=== PATIENT | female | born 1945 | race Caucasian/White ===

== ENCOUNTER 2018-08-26 12:00 | Day surgery (SDC) | payer OTHER ==
--- OUTSIDE RECORDS SUMMARY | 2018-08-26 12:04 | XMS REPORT ---
:1945 [facility] Organization [facility] Address [address] [place] [address] [address]. [address] [place] [address] Care Team Providers Name Role Phone Unavailable Unavailable Unavailable Problems This patient has no known problems. Allergies, Adverse Reactions, Alerts This patient has no known allergies or adverse reactions. Medications This patient has no known medications.
[2018-08-26] MEDS: CYCLOPENTOLATE 1% OPTH 2 ML ONE ×3 (12:25→12:45)
[2018-08-26] MEDS ORDERED: DUOVISC 1 KIT OPTH ONE (12:25)
[2018-08-26] MEDS: PHENYLEPHRINE 10% OPTH 5ML ONE ×3 (12:25→12:45)
[2018-08-26] MEDS ORDERED: NS 0.9% VIAL 10 ML ONE (12:25)
[2018-08-26] MEDS ORDERED: LIDOCAINE 2% MPF 5 ML VIAL ONE ×2 (12:26→13:32)
[2018-08-26] MEDS ORDERED: MOXIFLOXACIN HCL 10 DROPS/ML **OR USE OPTH ONE (12:26)
[2018-08-26] MEDS ORDERED: LIDOCAINE 1% MPF 2 ML AMPULE ONE (12:26)
[2018-08-26] MEDS ORDERED: TETRACAINE HCL 0.5% 2ML OPTH ONE (12:27)
[2018-08-26] MEDS ORDERED: LIDOCAINE HCL/PF 3.5% OPTH GEL ONE (12:27)
[2018-08-26] MEDS ORDERED: NA CHLORIDE 0.9% 500 ML ONE (12:27)
[2018-08-26] MEDS ORDERED: BUPIVACAINE 0.25% PF 10 ML VIAL ONE (12:27)
[2018-08-26] MEDS: BALANCED SALT IRRIG PLAIN 500 ML BTL IRR ONE ×2 (12:38→13:24)
[2018-08-26] MEDS: EPINEPHRINE/PF 1 MG/ML AMP ONE ×2 (12:38→13:24)
[2018-08-26] MEDS ORDERED: MIDAZOLAM HCL 2 MG/2 ML INJ ONE (13:07)
[2018-08-26] MEDS ORDERED: FENTANYL CITR 100 MCG/2 ML ONE (13:07)
[2018-08-26] MEDS ORDERED: DIPHENHYDRAMINE 50 MG/ML VIAL ONE (13:32)
[2018-08-26] MEDS ORDERED: LABETALOL 20 MG/4ML SYRINGE IV ONE (13:39)
--- NOTE | 2018-08-26 13:51 | P.BOP ---
Preoperative diagnosis: Nuclear sclerotic cataract OS Postoperative diagnosis: Same Primary procedure: Phacoemulsification with IOL OS Estimated blood loss: None Anesthesia: Local (Topical with anesthesia for cataract surgery) Complications: None Implants: SA60WF +25.5 Transferred to: Other (Day surgery) Condition: Good
--- NOTE | 2018-08-26 21:27 | OP ---
Date of Procedure: 08/26/2018 Surgeon: Michaela Thomas MD Anesthesiologist: Brandon Burris CRNA, and German Srivastava M.D. Preoperative Diagnosis: Nuclear sclerotic cataract, OS (left eye). Operation Performed: Phacoemulsification with intraocular lens implant, left eye. Anesthesia: Per cataract surgery. Complications: None. Description Of Procedure: In the operating room the patient was prepped and draped in the usual ster ile fashion for ophthalmic surgery. A lid speculum was placed in the left eye. Two paracentesis sit es were made superiorly and inferiorly in the limbal cornea. Viscoat was placed in the anterior cale wagner and a crescent blade was used to make a corneal groove and tunnel, and a keratome was used to ent er the anterior chamber. Provisc was placed in the anterior chamber and a 360 degree capsulotomy was performed with a cystitome. The lens was hydrodissected with BSS and rotated freely. The lens was removed with a stop and chop technique. A 4.67 phaco CDE was used to remove the lens. Residual vamsi ex was removed with the irrigation and aspiration. Provisc was placed in the capsular bag. A SA60WF +25.5 lens was placed in the capsular bag without complications. Irrigation and aspiration was used to remove residual viscoelastic. The paracentesis sites were hydrated with BSS. The wound and para centesis sites were inspected and found to be watertight. Vigamox 0.07 cc was placed intracamerally at the end of the procedure. The eye was irrigated with balanced salt solution. The eye was patched with a soft cotton patch and Alberto metal shield. The patient was returned to day surgery in good condition. Comments: Akten was placed in the eye in Day Surgery and irrigated out of the eye with BSS in the OR . Preservative-free 1% lidocaine was placed in the anterior chamber prior to Viscoat. Discharge Instructions: Ms. Esqueda is discharged to home in good condition and is to follow up with Dr. Thomas in the morning. JOSE/LINO Voice ID: [id number] Report ID: [id number]
== END 2018-08-26 14:15 | disposition home or self-care (01) ==
LOC: OR 12:00
PROVIDERS: ATTEND Ophthalmology Retina Specialist
PROC: 08RK3JZ Replacement of Left Lens with Synthetic Substitute, Percutaneous Approach (ICD-10-PCS; principal; 2018-08-26 11:30)
DX: H25.12 Age-related nuclear cataract, left eye (principal); E07.9 Disorder of thyroid, unspecified; Z79.899 Other long term (current) drug therapy
CPT/HCPCS: 66984; J0171; J2001; J2250; J3010; V2630

== ENCOUNTER 2020-12-16 19:35 | Emergency (ER) | payer OTHER ==
--- OUTSIDE RECORDS SUMMARY | 2020-12-16 19:38 | XMS REPORT | Continuity of Care Document ---
:1945 Author Organization [facility] t Address [address] [place] [address] Care Team Providers Name Role Phone Naseem RODRIGEZ, Hafsa Primary Care Physician Carlos A RODRIGEZ ARatna Attending Clinician Radha CORTEZ Attending Clinician Unavailable Anderson Fischer MD Attending Clinician Erich Alicea Attending Clinician Ben Neri Attending Clinician MD CARLOS A A. Attending Clinician Unavailable Omar FIGUEROA Attending Clinician Unavailable Davie Attending Clinician Unavailable Kelsie Carrera MD Attending Clinician Oz Mijares MD Attending Clinician Kayli Oglesby Attending Clinician Kalyna FIGUEROA Attending Clinician Unavailable Darnell CERVANTES Attending Clinician MD Kelsie CARRERA Attending Clinician Unavailable Luís Attending Clinician Unavailable Seun Gregorio MA Attending Clinician Unavailable Judy Partida MD Attending Clinician CARLOS A Admitting Clinician Unavailable MD Lenny STRAUSS. Admitting Clinician Unavailable FLACO Admitting Clinician Unavailable MD Kelsie CARRERA Admitting Clinician Unavailable Payers Payer Name Policy Type Policy Effective Date Expiration Date Sour ce Number MEDICAREMEDICARE PART [id number] 2011 Gavin Galvez AND 00:00:00 Religion [id number] 2011[place] [id number] 2013 [place] [id number] 00:00:00 Met diana /07/2012-Jeanette cial Problems Condition Condition Condition Status Onset Resolution Last Treating Co mments Source Name Details Category Date Date Treatment Clinician Date Primary Primary Disease Active Overview: [place] osteoarthr osteoarthr 1-06 Formattin Methodi itis of itis of 00:00: g of this st right hip right hip 00 note might be different from the original. Added automatic ally from request for surgery [id number] Osteoarthr Osteoarthr Disease Active [place] itis, knee itis, knee 9-16 Me thodi 00:00: st 00 Primary Primary Disease Active Overview: [place] osteoarthr osteoarthr 8-12 Formattin Methodi itis of itis of 00:00: g of this st left knee left knee 00 note might be different from the original. Added automatic ally from request for surgery [id number] Acute Acute Disease Active Overview: [place] n medial medial 2-03 Formattin Methodi meniscus meniscus 00:00: g of this st tear of tear of 00 note left knee left knee might be different from the original. Added automatic ally from request for surgery [id number] Loose body Loose body Disease Active Overview : [place] of left of left 2-03 Formattin Metho di knee knee 00:00: g of this st 00 note might be different from the original. Added automatic ally from request for surgery [id number] Allergies, Adverse Reactions, Alerts Allergy Allergy Status Severity Reaction(s) Onset Inactive Treating Comm ents Source Name Type Date Date Clinician Nsaids Propensi Active Other (See FLUID [place] (Non-Mert ty to Comments) 12 RETENTION Me thodi roidal adverse 00:00: & RAISED st Anti-Inf reaction 00 BLOOD lammator s to PRESSURE y Drug) drug Codeine Propensi Active Rash [place] ty to 09-18 Methodi adverse 00:00: st reaction 00 s to drug Meperidi Propensi Active Swelling [place] ne Hcl ty to 09-18 Methodi adverse 00:00: st reaction 00 s to drug Family History Family Member Diagnosis Comments Start Date Stop Date Source [facility] [place] Religion Natural father Heart disease Bro Espitiaist Natural mother Cancer [facility] thodist Social History Social Habit Start Date Stop Date Quantity Comments Source History of tobacco Current smoker Gavin nieves Religion use Cigarettes smoked 2020-09-09 2020-09-09 Bro Religion current (pack per 00:00:00 00:00:00 day) - Reported Cigarette 2020-09-09 2020-09-09 Bro Espitia ist pack-years 00:00:00 00:00:00 Tobacco use and 2020-09-09 2020-09-09 Never used Bro Barron ethodist exposure 00:00:00 00:00:00 Alcohol intake 2020-09-09 2020-09-09 Lifetime Bro Pablo thodist 00:00:00 00:00:00 non-drinker (finding) Tobacco Comment 2019-08-20 2019-08-20 smoked as a Bro Espitiaist 00:00:00 00:00:00 teenager Sex [birth year] Bro baldwinodist 00:00:00 00:00:00 Smoking Status Start Date Stop Date Source Former smoker 2020-09-09 00:00:00 2020-09-09 00:00:00 Bro Cisneros Medications Ordered Filled Start Stop Current Ordering Indication Dosage Frequency Signature Comments Components Source Medication Medication Date Date Medication? Clinician (SIG) Name Name CALCIUM Yes 1{tbl} QD Take 1 [place] ORAL 3-04 tablet by Methodi 10:10: mouth st 09 daily. multivitami Yes 1{tbl} QD Take 1 Ho ezequiel n with 3-04 tablet by Methodi minerals 10:10: mouth st tablet 09 daily. cholecalcif Yes Take by Mary ston jah, 3-04 mouth. Methodi vitamin D3, 10:10: st (VITAMIN D3 09 ORAL) spironolact Yes 50mg Q24H Take 50 mg [facility] 3-04 by mouth Methodi (ALDACTONE) 10:10: daily as st 25 MG 09 needed. tablet chlorthalid Yes 25mg Take 25 mg [place] one -04 by mouth Methodi (HYGROTEN) 10:10: as needed. s t 25 MG 09 tablet HYDROcodone 2020- No acute pain 1{tbl} Q6H Take 1 [place] -acetaminop 3-04 -14 tablet by Me aguilera avni (Admittor) 00:00: 23:[address] 5-325 mg 00 :00 every 6 per tablet (six) hours as needed for moderate pain for up to 10 days .acute pain. Max Daily Amount: 4 tablets TURMERIC 2020- No Take by [place] ORAL 08-20-12 mouth. Methodi 10:58: 00:00 st 10 :00 rivaroxaban Yes deep vein 10mg QD Take 1 [place] (XARELTO) 12 thrombosis tablet (10 Methodi 10 mg 00:00: prevention mg total) s t tablet 00 by mouth daily .deep vein thrombosis prevention . docusate 2020- No 100mg Q.5D Take 1 [place] sodium 08-20- capsule Methodi (Colace) 00:00: 23:59 ([address] 100 MG 00 :00 total) by capsule mouth 2 (two) times a day for 30 days. Constipati on prevention HYDROcodone 2020- No acute pain 1{tbl} Q6H Take 1 [place] -acetaminop 08-20 tablet by Me northsp holly (Admittor) 00:00: 23:[address] 10-325 mg 00 :00 every 6 per tablet (six) hours as needed for severe pain for up to 10 days .acute pain. Max Daily Amount: 4 tablets ondansetron 2020- No 4mg Q8H Take 1 Mary ston (Zofran) 4 08-20 tablet (4 Met hodi MG tablet 00:00: 23:59 mg total) st 00 :00 by mouth every 8 (eight) hours as needed for nausea or vomiting for up to 10 days. nut.tx.comp 2020- No 1{bottl Q.35854908 Take 1 [place] . immune 08-20 e} [id number] Bottle by [place] systm,reg 00:00: 23:[address] (Impact 00 :00 (three) Advanced times a Recovery) day for 5 0.1 days. gram-1.12 kcal/mL liquid traMADoL Yes 1{tbl} Take 1 [place] (ULTRAM) 50 1-15 tablet by Met hodi mg tablet 00:00: mouth as st 00 needed. meloxicam 2019-07 No 15mg QD Take 1 [place] (Mobic) 15 2-03 -02 tablet (15 Me thodi mg tablet 00:00: 23:59 mg total) st 00 :00 by mouth daily for 30 days. traMADoL 2019- No acute pain acute [place] (Ultram) 50 04-07 10- pain. Take M ethodi mg tablet 00:00: 23:59 1 tab po q s t 00 :00 4-6 hrs prn pain traMADoL 2019- No acute pain 50mg Q6H Take 1 [place] (Ultram) 50 03-25 tablet (50 M ethodi mg tablet 00:00: 23:59 mg total) st 00 :00 by mouth every 6 (six) hours as needed for moderate pain for up to 5 days .acute pain. enoxaparin No Primary 40mg QD Inject 0.4 [place] (Lovenox) 03-24 osteoarthri mL (40 mg Methodi 40 mg/0.4 00:00: 23:59 tis of left total) st mL syringe 00 :00 knee under the skin daily for 14 days. promethazin 2019- No Primary 25mg Q6H Take 1 [place] e 03-24 osteoarthri tablet (25 M ethodi (PHENERGAN) 00:00: 23:59 tis of left mg total) st 25 MG 00 :00 knee by mouth tablet every 6 (six) hours as needed for nausea or vomiting for up to 10 days. HYDROcodone 2019- No acute pain acute [place] -acetaminop 03-24 pain. Take M ethodi hen (NORCO) 00:00: 23:59 1-[address] 10-325 mg 00 :00 q 4-6 hrs per tablet prn # 50 nut.tx.comp 2019- No 1{bottl Q.20445454 Take 1 [place] . immune 03-22 e} [id number] Bottle by Methodi systm,reg 00:00: 23:[address] (Impact 00 :00 (three) Advanced times a Recovery) day for 5 0.1 days. gram-1.12 kcal/mL liquid meloxicam No 15mg QD Take 1 [place] (Mobic) 15 10-27 tablet (15 Me thodi mg tablet 00:00: 00:00 mg total) st 00 :00 by mouth daily. amlodipine- No 1{tbl} QD Take 1 [place] olmesartan 1-03-22 tablet by Met baig (CHAI) 5-40 00:00: 00:[address] mg per 00 :00 daily. tablet traMADol chronic 50mg Q6H Take 1 Mary ston (ULTRAM) 50 1-06 01-05 pain tablet (50 M ethodi mg tablet 00:00: 23:59 mg total) st 00 :00 by mouth every 6 (six) hours as needed for moderate pain .chronic pain. levothyroxi 2018-07 Yes 75ug Take 75 Mary ston ne 2-15 mcg by Methodi (SYNTHROID) 00:00: mouth. st 50 mcg 00 tablet Vital Signs Vital Name Observation Time Observation Value Comments Source Body height 2020-09-09 10:09:00 152.4 cm Bro Cisneros Body weight 2020-09-09 10:09:00 74.844 kg Bro Cisneros BMI 2020-09-09 10:09:00 32.22 kg/m2 Bro Cisneros Systolic blood 2020-08-30 16:14:00 133 mm[Hg] [place] Religion pressure Diastolic blood 2020-08-30 16:14:00 61 mm[Hg] [place] Religion pressure Heart rate 2020-08-30 16:14:00 85 /min Bro Cisneros Body temperature 2020-08-30 16:14:00 36.22 [place] Religion Respiratory rate 2020-08-30 16:14:00 15 /min [place] Religion Oxygen saturation in 2020-08-30 16:14:00 94 /min Bro Cisneros Arterial blood by Pulse oximetry Procedures Procedure Date / Time Performed Performing Clinician Sourc e XR PELVIS 1 OR 2 VW 2020-09-09 10:16:50 Jethro Strauss SURGICAL PATHOLOGY 2020-08-30 14:36:00 Jethro Strauss ethodist REQUEST XR PELVIS 1 OR 2 VW 2020-08-30 13:34:02 Jaleesa Pimentel on Religion OR FL < 1 HOUR 2020-08-30 11:04:11 Jethro Strauss Meth odist ARTHROPLASTY, HIP, TOTAL, 2020-08-30 08:54:00 Jethro Strauss ANTERIOR APPROACH [place] AN PERIPHERAL BLOCK 2020-08-30 08:40:51 Mayo Fischer on Religion PROCEDURE FOR PAIN [place] AN PERIPHERAL BLOCK 2020-08-30 08:40:33 Mayo Fischer on Religion PROCEDURE FOR PAIN ANESTHESIA SPINAL BLOCK 2020-08-30 08:40:26 Mayo Fischer POC GLUCOSE 2020-08-30 08:06:00 Jethro Strauss odist TYPE AND SCREEN 2020-08-20 11:45:00 Jethro Strauss odist COVID-19 QUALITATIVE PCR 2020-08-20 11:16:00 Jethro Strauss Religion HC COMPLETE BLD COUNT 2020-08-20 11:16:00 Jethro Strauss n Religion W/AUTO DIFF COMPREHENSIVE METABOLIC 2020-08-20 11:16:00 Jethro Strauss Religion PANEL HEMOGLOBIN A1C 2020-08-20 11:16:00 Jethro Strauss Meth odist ESTIMATED GFR 2020-08-20 11:16:00 Jethro Strauss odist HEMOGLOBIN A1C 2020-06-11 11:06:00 Jethro Strauss odist XR KNEE 1 OR 2 VW LEFT 2020-04-07 13:01:17 Katelin Carrera on Religion HC COMPLETE BLD COUNT 2020-03-25 05:12:00 Sanam Calvo Religion W/AUTO DIFF Tajdin BASIC METABOLIC PANEL 2020-03-25 05:12:00 Sanam Calvo Tajdin MAGNESIUM LEVEL 2020-03-25 05:12:00 Sanam Calvo Me thodist Tajdin ESTIMATED GFR 2020-03-25 05:12:00 Sanam Calvo Bro Pablo thodist Takeyonin SURGICAL PATHOLOGY 2020-03-24 09:21:00 Katelin Carrera ethodist REQUEST [place] PERIPHERAL BLOCK 2020-03-24 08:32:27 Mayo Fischer on Religion PROCEDURE FOR PAIN [place] PERIPHERAL BLOCK 2020-03-24 08:32:10 Mayo Fischer on Religion PROCEDURE FOR PAIN ANESTHESIA PERIPHERAL 2020-03-24 08:31:56 Mayo Fischer Religion BLOCK ANESTHESIA INTUBATION 2020-03-24 07:50:31 Niru Rosenberg URINE CULTURE 2020-03-24 07:40:00 Katelin Carrera URINALYSIS SCREEN AND 2020-03-24 07:40:00 Katelin Carrera MICROSCOPY, WITH REFLEX TO CULTURE ARTHROPLASTY, KNEE, TOTAL 2020-03-24 07:26:00 Katelin Carrera POC GLUCOSE 2020-03-24 06:32:00 Katelin Carrera COVID-19 QUALITATIVE PCR 2020-03-22 14:38:00 Areli Patrick HC COMPLETE BLD COUNT 2020-03-22 14:38:00 Areli Patrick on Religion W/AUTO DIFF HEMOGLOBIN A1C 2020-03-22 14:38:00 Areli Patrick Met diana BASIC METABOLIC PANEL 2020-03-22 14:38:00 Areli Patrick on Religion TYPE AND SCREEN 2020-03-22 14:38:00 Areli Patrick Met emilianoist ESTIMATED GFR 2020-03-22 14:38:00 Areli Patrick Met diana MRI SIGNATURE KNEE LEFT 2020-01-21 10:09:48 Katelin Carrera Plan of Care Planned Activity Planned Date Details Comments Source Future Scheduled 2021-02-06 INFLUENZA VACCINE Rajan canales Religion Test 00:00:00 [code = INFLUENZA VACCINE] Future Scheduled 2011-10-31 65+ PNEUMOCOCCAL [place] Religion Test 00:00:00 VACCINE (1 of 1 - PPSV23) [code = 65+ PNEUMOCOCCAL VACCINE (1 of 1 - PPSV23)] Future Scheduled 1996 BREAST CANCER [place] Me thodist Test 00:00:00 SCREENING [code = BREAST CANCER SCREENING] Future Scheduled 1996 COLONOSCOPY SCREENING Ho usaryan Religion Test 00:00:00 [code = COLONOSCOPY SCREENING] Future Scheduled 1996 SHINGLES VACCINES (#1) [place] Religion Test 00:00:00 [code = SHINGLES VACCINES (#1)] Future Scheduled 1964 Hepatitis C screening [place] Religion Test 00:00:00 (procedure) [code = 834013317] Future Scheduled 1958 COVID-19 VACCINE (1) Mary adolfo Religion Test 00:00:00 [code = COVID-19 VACCINE (1)] Encounters Start End Encounter Admission Attending Care Care Encounter Source Date/Time Date/Time Type Type Clinicians Facility Department ID 2020-11-15 2020-11-15 Outpatient STRAUSS, JETHRO [facility] [id number] [place] 00:00:00 00:00:[address] 2020-10-07 2020-10-07 Outpatient STRAUSS, JETHRO [facility] [id number] [place] 00:00:00 00:00:[address] 2020-09-09 2020-09-09 Outpatient STRAUSS, JETHRO [facility] [id number] [place] 00:00:00 00:00:[address] 2020-09-09 2020-09-09 Outpatient STRAUSS, JETHRO [facility] [id number] [place] 00:00:00 00:00:[address] 2020-08-30 2020-08-30 Outpatient STRAUSS, [facility] 021 [id number] [place] 00:00:00 00:00:[address] 2020-08-20 2020-08-20 Outpatient STRAUSS, JETHRO [facility] [id number] [place] 00:00:00 00:00:[address] 2020-06-09 2020-06-09 Outpatient STRAUSS, JETHRO [facility] [id number] [place] 00:00:00 00:00:[address] 2020-06-01 2020-06-01 Outpatient MAFFET, [facility] [id number] [place] 00:00:00 00:00:00 KATELIN [address] 2020-05-18 2020-05-18 Outpatient MIJARES, NIURKA [facility] [id number] [place] 00:00:00 00:00:[address] 2020-05-06 2020-05-06 Outpatient MAFFET, [facility] [id number] [place] 00:00:00 00:00:00 KATELIN [address] 2020-04-07 2020-04-07 Outpatient MAFFET, [facility] [id number] [place] 00:00:00 00:00:00 KATELIN [address] 2020-04-07 2020-04-07 Outpatient PELUSE, [facility] [id number] [place] 00:00:00 00:00:00 BRYAN [address] 2020-03-24 2020-03-25 Inpatient MAFFET, [facility] 021 [id number] [place] 00:00:00 00:00:00 KATELIN [address] 2020-03-22 2020-03-22 Outpatient MAFFET, [facility] [id number] [place] 00:00:00 00:00:00 KATELIN [address] 2020-01-21 2020-01-21 Outpatient MAFFET, [facility] [id number] [place] 00:00:00 00:00:00 KATELIN [address] 2019-12-08 2019-12-08 Outpatient MAFFET, [facility] [id number] [place] 00:00:00 00:00:00 KATELIN [address] 2019-11-25 2019-11-25 Outpatient MIJARES, NIURKA [facility] [id number] [place] 00:00:00 00:00:[address] 2019-11-18 2019-11-18 Outpatient MAFFET, [facility] [id number] [place] 00:00:00 00:00:00 KATELIN [address] 2019-11-10 2019-11-10 Outpatient STRAUSS, JETHRO [facility] [id number] [place] 00:00:00 00:00:[address] 2019-11-10 2019-11-10 Outpatient STRAUSS, JETHRO [facility] [id number] [place] 00:00:00 00:00:[address] 2019-10-28 2019-10-28 Outpatient MAFFET, [facility] [id number] [place] 00:00:00 00:00:00 KATELIN [address] 2019-08-22 2019-08-22 Outpatient [facility] [id number] [place] 00:00:00 00:00:00 KATELIN [address] 2019-07-14 2019-07-14 [facility] [id number] [place] 00:00:00 00:00:00 KATELIN 895 Method i 2019-01-31 2019-01-31 [facility] [id number] 10:34:59 23:59:00 Encounter [employer] [id number] Surgical 4.2.7.2.686 Specialti [id number] es 809 [place] 2019-01-31 2019-01-31 Office [facility] [id number] 10:19:14 10:43:35 Visit [employer] [id number] Surgical 4.2.7.2.686 Specialti [id number] es 198 [place] Results Test Description Test Time Test Comments Results Result Comments Source Surgical pathology request 2020-09-08 12:23:43 Test Item Value Reference Range Interpretation Comme nts Case number (test code = 6800998) [id number] Surgical pathology report (test code = See link below for PDF Lab R eport 4539) Result status (test code = 4171674) This is Final Report for [id number] [id number] Bro [facility] [place] < 1 [id number] 13:46:34Hm Interface, Radiology Results 09/01/2020 1:49 PM CSTFormatting of this note might be di fferent from the original.EXAMINATION: OR [place] < 1 HOURC-arm fluoroscopy was requested in OR. IMPRESSION:Intraoperative fluoroscopic images. Radiologist was not present during the examination.Separate operative report will be issued by the physician performing the procedure.[id number] [facility] [id number] 08:40:51Mayo Fischer MD 08/30/2020 8:41 AMPeripheral Block Patient Location: Pre-opReason for Block:at surgeon's request, post-op pain management Performed by: anesthesiologistAnesthesiologist: Mayo Fischer, MDAuthorized by: Mayo Fischer MD Preprocedure: patient identified, IV checked, siteand side verified, risks and benefits discussed, procedure verified, surgical consent complete, patient position confirmed, monitors and equipment checked, pre-op evaluation complete and site marked Peripheral Nerve Block: Patient Position: Left lateral decubitus and supine Prep: DuraPrep Anesthesia block type: Right Lateral Femoral Cutaneous.Laterality: RightInjection Technique: Single injectionProcedures: ultrasound guided Ultrasound documentation: Printed/placed in chartLocal Infiltration (See MAR for details): BupivacaineLoss of Twitch: 0 mANeedle: Needle Type: Pajunk Catheter at Skin Depth: 6 cmAssessment: Injection Assessment: Visualized needle/local anesthetic surrounding nerve, visualized pertinent vascular structures and nerves, needle tip visualized at all times during injection of medication, intermittent aspiration during local anesthetic administration and no symptoms of intraneural/intravenous injection Heart Rate Change: No Slow Fractionated Injection: Yes Block outcome: No apparent complications, patient comfortable and patient tolerated procedure wellNotes: 6 cc 0.25MTime Out done immediately before procedureTelferner MethodistPeripheral [id number] 08:40:33Mayo Fischer MD 08/30/2020 8:40 AMPeripheral Block Reason for Block: at surgeon's request, post-op pain management, procedure for pain Performed by: anesthesiologistAnesthesiologist: Mayo Fischer, MDAuthorized by: Mayo Fischer MD Preprocedure: patient identified, IV checked, site and s angi verified, risks and benefits discussed, procedure verified, surgical consent complete, patient position confirmed, monitors and equipment checked, pre-op evaluation complete and site marked Peripheral Nerve Block: Patient Position: Supine Prep: ChloraPrep Monitoring: Blood pressure monitoring, continuous pulse oximetry, CO2 and heart rateBlock Type: Quadratus lumborumLaterality: RightInjection Technique: Single injectionProcedures: ultrasound guided Ultrasound documentation: Printed/placed in chartNeedle: Needle Type: Pajunk Needle Length: 15 cmAssessment: Injection Assessment: Needle tip visualized at all times during injection of medication, intermittent aspiration during local anesthetic administration and no symptoms of intraneural/intravenous injection Block outcome: No apparent complicationsNotes: Time Out done immediately before procedureTelferner MethodistSpinal [id number] 08:40:26 Mayo Fischer MD 08/30/2020 8:40 AMSpinal Block Patient Location: Pre- opReason for Block: primary anesthetic Performed by: anesthesiologistAnesthesiologist: Mayo Fischer, MDAuthorized by:Mayo Fischer MD Preprocedure: patient identified, IV checked, site and side verified, risks and benefits discussed, procedure verified, surgical consent complete, patient position confirmed, monitors and equipment checked and pre-op evaluation complete Spinal Block: Patient Position: Sitting Prep: DuraPrep Monitoring: Blood pressure monitoring, continuous pulse oximetry and heart rate Approach: Midline Interspace: L3-4Injection Technique: Single injectionNeedle: Needle Type: Sprotte tip Needle Gauge: 25 GAssessment: Block assessment: No apparent complicationsNotes: 2cc 0.5M IsobaricTime out performed immediately before procedureTelferner ViwhxvtknFUXN-GhP-6 (COVID-19) RNA [Presence] in Respiratory specimen by [place] with probe [id number] 22:11:12 Test Item Value Reference Range Interpretation Comments SARS-CoV-2 (COVID-19) RNA Not detected Not-Detected [Presence] in Respiratory specimen by [place] with probe detection (test code = 85738-7) Urine [id number] 10:08:53 Test Item Value Reference Range Interpretation Comments Urine culture (test SEE COMMENT Bacteriu ashlyn screen code = 0008344) negative. Bro MethodistUrinalysis screen and microscopy, with reflex to culture 2020-03-24 10:08:53 Test Item Value Reference Range Interpretation Comments Specimen site (test Catheterized code = 6324817) Color, UA (test code = Straw 5778-6) Appearance, UA (test Clear code = 5767-9) Specific gravity, UA 1.013 1.001-1.030 (test code = 5811-5) pH, UA (test code = 5.0 5.0-9.0 5803-2) Protein, UA (test code Negative Negative = 51356-8) Glucose, UA (test code Negative Negative = 94550-2) Ketones, UA (test code Negative Negative = 2514-8) Bilirubin, UA (test Negative Negative code = 5770-3) Blood, UA (test code = Small Negative A 5794-3) Nitrite, UA (test code Negative Negative = 5802-4) Urobilinogen, UA (test <2.0 See_Comment [Aut omated code = 91579-5) message] The system which generated this result transmitted reference range : <2.0 E.U./dL. T he reference range was not used to interpret this result as normal/abnormal . Leukocyte esterase, UA Negative Negative (test code = 5799-2) Epithelial cells, UA <1 See_Comment [Autom ated (test code = 5787-7) message ] The system which generated this result transmitted reference range : /HPF. The refer ence range was not u sed to interpret th is result as normal/abnormal . WBC, UA (test code = 1 See_Comment [Autom ated 5821-4) message] The sy stem which generated this result transmitted reference range : 0 - 4 /HPF. The reference range was not used to interpret this result as normal/abnormal . RBC, UA (test code = 1 See_Comment [Autom ated 97003-9) message] The sy stem which generated this result transmitted reference range : 0 - 5 /HPF. The reference range was not used to interpret this result as normal/abnormal . Bacteria, UA (test Few None seen code = 00683-7) Yeast, UA (test code = None seen 82996-1) Yeast with None seen pseudohyphae, UA (test code = 00674-7) Lab Interpretation Abnormal (test code = 28406-1) [place] [facility] [id number] 08:32:27Mayo Fischer MD 03/24/2020 8:32 AMPeripheral BlockPerformed by: Mayo Fischer MDAuthorized by: Mayo Fischer MD Patient Location: Block roomReason for Block: at surgeon's request, post-op pain management Staff: Anesthesiologist: Mayo Fischer MD Performed by: AnesthesiologistPreprocedure: patient identified, IV checked, site and side verified, risks and benefits discussed, procedure verified, surgical consent complete, patient position confirmed, monitors and equipment checked, pre-op evaluation complete, site marked and coagulation status reviewed Peripheral Nerve Block: Patient Position: Supine Prep: ChloraPrep Monitoring: Blood pressure monitoring, continuous pulseoximetry and heart rateAnesthesia block type: Left Anterior Femoral Cutaneous.Laterality: LeftInjection Technique: Single injectionProcedures: ultrasound guided Ultrasound documentation: Printed/placed in chartLocal Infiltration (See MAR for details): RopivacaineNeedle: Needle Type: Long-beveland Pajunk Needle Gauge: 22 G Needle Length: 10 cmAssessment: Injection Assessment: Visualized needle/local anesthetic surrounding nerve, needle tip visualized at all times during injection of medication, visualized pertinent vascular structures and nerves, intermittent aspiration during local anesthetic administration and no symptoms of intraneural/intravenous injection Heart Rate Change: No Slow Fractionated Injection: Yes Block outcome: No apparent complications, patient comfortable and patient tolerated procedure wellNotes: Time out Done Immediately Before ProcedureH[facility] MethodistPeripheral Block 2020-03-24 08:32:10GrMayo keys MD 03/24/2020 8:32 AMPeripheral BlockPerformed by: Mayo Fischer [facility] CENTERuthorized by: Mayo Fischer MD Patient Location: Block roomReason for Block: at surgeon's request, post-op pain management Staff: Anesthesiologist: Mayo Fischer MDPreprocedure: patient identified, IV checked, site and side verified, risks and benefits discussed, procedure verified, surgical consent complete, patient position confirmed, monitors and equipment checked, pre-op evaluation complete and site marked Peripheral Nerve Block: Patient Position: Supine Prep: ChloraPrep Monitoring: Blood pressure monitoring, continuous pulse oximetry and heart rateBlock Type: Sciatic (Left IPACK Sciatic)Laterality: LeftInjection Technique: Single injectionProcedures: ultrasound guided Ultrasound do cumentation: Printed/placed in chartNeedle: Needle Type: Long-bevel Needle Gauge: 22 G NeedleLength: 15 cmAssessment: Injection Assessment: Visualized needle/local anesthetic surrounding nerve, visualized pertinent vascular structures and nerves, needle tip visualized at all times during in jection of medication, intermittent aspiration during local anesthetic administration and no symptoms of intraneural/intravenous injection Heart Rate Change: No Slow Fractionated Injection: Yes Block outcome: No apparent complications, patient comfortable and patient tolerated procedure wellNotes: Time out done immediately before ProcedureHoukindred [facility] MethodistPeripheral Block 2020-03-24 08:31:56GrMayo keys MD 03/24/2020 8:32 AMPeripheral BlockPerformed by: Mayo Fischer MDAuthorized by: Mayo Fischer MD Patient Location: Pre-opReason for Block: at surgeon's request, post-op painmanagement Staff: Anesthesiologist: Mayo Fischer MD Performed by: AnesthesiologistPreprocedure: patient identified, IV checked, site and side verified, risks and benefits discussed, procedure verified, surgical consent complete, patient position confirmed, monitors and equipment checked, pre-op evaluation complete and site marked Peripheral Nerve Block: Patient Position: Supine Prep: DuraPrep Block Type: Femoral (Left Femoral Adductor Canal Catheter)Laterality: LeftInjection Technique: Catheter insertionProcedures: ultrasound guided Ultrasound documentation: Printed/placed in chartLocal Infiltration (See MAR for details): RopivacaineNeedle: Needle Type: Pajunk Needle Gauge: 19 G Needle Length: 10 cm Catheter at Skin Depth: 6 cmAssessment: Injection Assessment: Visualized needle/local anesthetic surrounding nerve, visualized pertinent vascular structures and nerves, needle tip visualized at all times during injection of medication, intermittent aspiration during local anesthetic administration and no symptoms of intraneural/intravenous injection Heart Rate Change: No Slow Fractionated Injection: Yes Block outcome: No apparent complications, patient comfortable and patient tolerated procedure wellNotes: 20cc 0.5N and 4mg decadronTime Out done immediately before procedureTelferner [id number] 07:50:31 Niru Rosenberg CRNA 03/24/2020 7:51 AMAirwayDate/Time: 03/24/2020 7:33 AMPerformed by: Niru Rosenberg CRNAAuthorized by: Mayo Fischer MD Difficult Airway: No Anesthesiologist: Mayo Fischer, MDResident/LAST TRIMMER/AA: Niru Rosenberg CRNAPerformed by: resident/LAST TRIMMER/AAPreoxygenated with 100% O2: Yes C-spine Precautions Maintained Throughout: Yes Mask Ventilation: Not attemptedFinal Airway Type: Supraglottic airwayFinal LMA: I-GelLMA Size: 4Number of Attempts at Approach: 1[place] VcmhtwnavBASQ-[id number]-7 (COVID-19) RNA [Presence] in Respiratory specimen by [place] with probe [id number] 02:10:07 Test Item Value Reference Range Interpretation Comments SARS-CoV-2 (COVID-19) RNA Not detected Not-Detected [Presence] in Respiratory specimen by [place] with probe detection (test code = 88251-0) MRI Signature Knee [id number] 10:12:39Hm Interface, Radiology Results - 01/21/2020 10:15 AM CDT EXAMINATION: MRI SIGNATURE KNEE LEFTCLINICAL HISTORY: M17.12 Unilateral primary osteoarthritis left knee, osteoarthritis of the left kneeCOMPARISON: Knee radiographs date07/14/2019TECHNIQUE: Sagittal 3-D T1 weighted fat saturated high resolution images of the knee were obtained. Axial T1 weighted images of the ankle and hip were also obtained. The study was performed using the [employer] signature protocol for preoperative planning.FINDINGS:1.Limited images of the knee demonstrate advanced osteoarthrosis, most severe in the medial femorotibial compartment where there is full-thickness chondral loss and [id number] apposition. A moderate size knee joint effusion is seen with probable small intra-articular bodies.2.Limited assessment of the ankle demonstrates no suspicious bony or soft tissue abnormality.3.Limited assessment of the pelvis and hips demonstrates no suspicio us abnormality. There is evidence of moderate to severe right hip osteoarthrosis. Low signal within the acetabulum and femoral head likely reflects marrow edema and sclerosis in the setting of osteoarthrosis. Diverticulosis of the sigmoid colon. Prior hysterectomy.IMPRESSION:1.Imaging performed for operative planning demonstrates advanced osteoarthrosis of the knee.2.Moderate to severe osteoarthrosisof the right hip.3.Sigmoid colonic diverticulosis.[facility]-[id number] Religion
[2020-12-16] MEDS ORDERED: METHYLPREDNISOLONE 125 MG INJ ONE (20:29)
[2020-12-16] MEDS ORDERED: FAMOTIDINE 20 MG/2 ML VIAL IV ONE (20:29)
[2020-12-16] MEDS ORDERED: DIPHENHYDRAMINE 50 MG/ML VIAL ONE (20:29)
[2020-12-16] MEDS ORDERED: predniSONE 20 MG TAB ONE (20:29)
[2020-12-16] MEDS ORDERED: NA CHLORIDE 0.9% 500 ML ONE (20:29)
[2020-12-16 20:31] LABS: Absolute Lymphocytes (CBC) 2.3 K/uL (0.7-4.9); Basophils % 0.6 % (0-1.3); Hematocrit 39.5 % (36.0-45.0); Lymphocytes % 31.6 % (15.3-44.8); MPV 8.5 fL (7.6-11.3); RBC Red Blood Cell Count 4.89 M/uL (3.86-4.86)
--- NOTE | 2020-12-16 20:50 | ER ---
Nurse's Notes [facility] Name: Ashley Esqueda Age: 75 yrs Sex: Female : 1945 Arrival Date: 12/16/2020 Time: 19:39 Bed 28 Private MD: Yusra Sales Diagnosis: Bee allergy status;Insect allergy status Presentation: 12/16 19:55 Chief complaint: Patient states: she is allergic to wasps and was stung by one approx bb 1815 pt now has swelling to face and lip she took Benadryl 50 mg prior to arrival. Coronavirus screen: At this time, the client does not indicate any symptoms associated with coronavirus-19. Ebola Screen: No symptoms or risks identified at this time. Initial Sepsis Screen: Does the patient meet any 2 criteria? No. Patient's initial sepsis screen is negative. Does the patient have a suspected source of infection? No. Patient's initial sepsis screen is negative. Risk Assessment: Do you want to hurt yourself or someone else? Patient reports no desire to harm self or others. Onset of symptoms was December 16, 2020. 19:55 Method Of Arrival: Ambulatory bb 19:55 Acuity: MASSIEL 2 bb Historical: - Allergies: 19:57 Wasps; bb 19:57 Demerol; bb 19:57 Codeine; bb - Immunization history:: Adult Immunizations unknown. - Social history:: Smoking status: unknown. Screenin:04 Abuse screen: Denies threats or abuse. Nutritional screening: No deficits noted. vg1 Tuberculosis screening: No symptoms or risk factors identified. Fall Risk No fall in past 12 months (0 pts). No secondary diagnosis (0 pts). IV access (20 points). Ambulatory Aid- None/Bed Rest/Nurse Assist (0 pts). Gait- Normal/Bed Rest/Wheelchair (0 pts) Mental Status- Oriented to own ability (0 pts). Total Melendrez Fall Scale indicates No Risk (0-24 pts). Assessment: 20:02 General: Appears in no apparent distress. uncomfortable, Behavior is calm, cooperative. vg1 Pain: Complains of pain in Right cheek and upper lip Pain currently is 3 out of 10 on a pain scale. Quality of pain is described as tingling, numb, Pain began 1 hour ago. Neuro: Level of Consciousness is awake, alert, obeys commands, Oriented to person, place, time, situation. Cardiovascular: Patient's skin is warm and dry. Respiratory: Airway is patent Respiratory effort is even, unlabored, Denies difficulty breathing. GI: No signs and/or symptoms were reported involving the gastrointestinal system. : No signs and/or symptoms were reported regarding the genitourinary system. EENT: Throat is clear. Derm: Skin is intact, is healthy with good turgor. Musculoskeletal: Circulation, motion, and sensation intact. 21:32 Reassessment: Patient appears in no apparent distress at this time. Patient and/or vg1 family updated on plan of care and expected duration. Pain level reassessed. Patient is alert, oriented x 3, equal unlabored respirations, skin warm/dry/pink. Patient denies pain at this time. Patient states feeling better. Vital Signs: 19:55 BP 179 / 80; Pulse 81; Resp 16 S; Temp 98.3(O); Pulse Ox 96% on R/A; Weight 72.57 kg bb (R); Height 5 ft. 0 in. (152.40 cm) (R); Pain 3/10; 20:03 BP 180 / 83; Pulse 74; Resp 16; Pulse Ox 98% on R/A; vg1 21:32 BP 169 / 90; Pulse 72; Resp 14; Pulse Ox 100% on R/A; vg1 19:55 Body Mass Index 31.25 (72.57 kg, 152.40 cm) ED Course: 19:39 Patient arrived in ED. 19:40 Yusra Sales MD is Private Physician. 19:56 Axel Bess MD is Attending Physician. [facility] 19:56 Triage completed. 19:57 Arm band placed on Patient placed in an exam room, on a stretcher, on pulse oximetry. Family accompanied patient. ED physician notified. 20:01 Martha Alicea, RN is Primary Nurse. 1 20:04 Patient has correct armband on for positive identification. Bed in low position. Call vg1 light in reach. Side rails up X 1. Adult w/ patient. 20:18 Initial lab(s) drawn, by me, sent to lab. Inserted saline lock: 20 gauge in left vg1 antecubital area, using aseptic technique. Blood collected. 20:35 Inserted saline lock: 22 gauge in left EJ, using aseptic technique. ,using aseptic vg1 technique. Completed by Pawan HUERTAS. 20:48 Yusra Sales MD is Referral Physician. [facility] 21:32 No provider procedures requiring assistance completed. IV discontinued, intact, vg1 bleeding controlled, No redness/swelling at site. Pressure dressing applied. Administered Medications: 20:19 Drug: NS 0.9% 500 ml Route: IV; Rate: bolus; Site: left antecubital; vg1 21:11 Follow up: IV Status: Completed infusion; IV Intake: 500ml vg1 20:19 Drug: SOLU-Medrol (methylPrednisoLONE) 125 mg Route: IVP; Site: left antecubital; vg1 21:00 Follow up: Response: No adverse reaction vg1 20:20 Drug: Pepcid (famotidine) 40 mg Route: IVP; Site: left antecubital; vg1 21:00 Follow up: Response: No adverse reaction vg1 20:23 Drug: Benadryl (diphenhydrAMINE) 25 mg Route: IVP; Site: left antecubital; vg1 21:00 Follow up: Response: No adverse reaction vg1 20:30 Drug: predniSONE 60 mg Route: PO; vg1 21:00 Follow up: Response: No adverse reaction vg1 Intake: 21:11 IV: 500ml; Total: 500ml. vg1 Outcome: 20:49 Discharge ordered by . [facility] 21:33 Discharged to home ambulatory, with family. vg1 21:33 Condition: stable 21:33 Discharge instructions given to patient, Instructed on discharge instructions, follow up and referral plans. medication usage, Demonstrated understanding of instructions, follow-up care, medications, Prescriptions given X 4. 21:33 Patient left the ED. vg1 Signatures: Axel Bess MD MD cha Salyer, Edna es Ballard, Brenda RN RN Martha Mcintosh RN RN vg1
--- NOTE | 2020-12-16 20:50 | EDPHYS ---
Physician Documentation [facility] Name: Ashley Esqueda Age: 75 yrs Sex: Female : 1945 Arrival Date: 12/16/2020 Time: 19:39 Bed 28 Private MD: Yusra Sales ED Physician Axel Bess HPI: 12/16 20:44 This 75 yrs old Female presents to ER via Ambulatory with complaints of warsp jalen sting allergic to it. 20:44 The patient presents with itching, localized swelling, runny nose. Onset: The jalen symptoms/episode began/occurred just prior to arrival. Associated signs and symptoms: Pertinent positives: light headed, swelling. Possible causes: bees. At home the patient or guardian has treated the symptoms with Benadryl. Severity of symptoms: At their worst the symptoms were mild in the emergency department the symptoms are unchanged. The patient has not experienced similar symptoms in the past. Historical: - Allergies: 19:57 Wasps; bb 19:57 Demerol; bb 19:57 Codeine; bb - Immunization history:: Adult Immunizations unknown. - Social history:: Smoking status: unknown. ROS: 20:45 Constitutional: Negative for fever, chills, and weight loss, Eyes: Negative for injury, jalen pain, redness, and discharge, ENT: Negative for injury, pain, and discharge, Neck: Negative for injury, pain, and swelling, Cardiovascular: Negative for chest pain, palpitations, and edema, Respiratory: Negative for shortness of breath, cough, wheezing, and pleuritic chest pain, Abdomen/GI: Negative for abdominal pain, nausea, vomiting, diarrhea, and constipation, Back: Negative for injury and pain, : Negative for injury, bleeding, discharge, and swelling, MS/Extremity: Negative for injury and deformity, Neuro: Negative for headache, weakness, numbness, tingling, and seizure, Psych: Negative for depression, anxiety, suicide ideation, homicidal ideation, and hallucinations, Endocrine: Negative for neck swelling, polydipsia, polyuria, polyphagia, and marked weight changes, Hematologic/Lymphatic: Negative for swollen nodes, abnormal bleeding, and unusual bruising. 20:45 Skin: Positive for swelling, of the mouth. Exam: 20:45 Constitutional: This is a well developed, well nourished patient who is awake, alert, jalen and in no acute distress. Eyes: Pupils equal round and reactive to light, extra-ocular motions intact. Lids and lashes normal. Conjunctiva and sclera are non-icteric and not injected. Cornea within normal limits. Periorbital areas with no swelling, redness, or edema. ENT: Nares patent. No nasal discharge, no septal abnormalities noted. Tympanic membranes are normal and external auditory canals are clear. Oropharynx with no redness, swelling, or masses, exudates, or evidence of obstruction, uvula midline. Mucous membranes moist. Neck: Trachea midline, no thyromegaly or masses palpated, and no cervical lymphadenopathy. Supple, full range of motion without nuchal rigidity, or vertebral point tenderness. No Meningismus. Chest/axilla: Normal chest wall appearance and motion. Nontender with no deformity. No lesions are appreciated. Cardiovascular: Regular rate and rhythm with a normal S1 and S2. No gallops, murmurs, or rubs. Normal PMI, no JVD. No pulse deficits. Respiratory: Lungs have equal breath sounds bilaterally, clear to auscultation and percussion. No rales, rhonchi or wheezes noted. No increased work of breathing, no retractions or nasal flaring. Abdomen/GI: Soft, non-tender, with normal bowel sounds. No distension or tympany. No guarding or rebound. No evidence of tenderness throughout. Back: No spinal tenderness. No costovertebral tenderness. Full range of motion. Female : Normal external genitalia. MS/ Extremity: Pulses equal, no cyanosis. Neurovascular intact. Full, normal range of motion. Neuro: Awake and alert, GCS 15, oriented to person, place, time, and situation. Cranial nerves II-XII grossly intact. Motor strength 5/5 in all extremities. Sensory grossly intact. Cerebellar exam normal. Normal gait. Psych: Awake, alert, with orientation to person, place and time. Behavior, mood, and affect are within normal limits. 20:45 Head/face: Noted is swelling, tenderness, that is moderate, of the right cheek, mouth and right jaw. 20:45 Skin: Appearance: Color: normal in color, Temperature: normal temperature, Moisture: normal moisture, petechiae, not noted, ecchymosis, not noted, flushing, not noted, diaphoresis is not appreciated. Vital Signs: 19:55 BP 179 / 80; Pulse 81; Resp 16 S; Temp 98.3(O); Pulse Ox 96% on R/A; Weight 72.57 kg bb (R); Height 5 ft. 0 in. (152.40 cm) (R); Pain 3/10; 20:03 BP 180 / 83; Pulse 74; Resp 16; Pulse Ox 98% on R/A; vg1 21:32 BP 169 / 90; Pulse 72; Resp 14; Pulse Ox 100% on R/A; vg1 19:55 Body Mass Index 31.25 (72.57 kg, 152.40 cm) bb MDM: 19:56 Patient medically screened. [facility] 20:45 Differential diagnosis: angioedema, urticaria. Data reviewed: vital signs, nurses jalen notes. Data interpreted: library monitor: rate is 74 beats/min, rhythm is regular, Pulse oximetry: on room air is 98 %. Counseling: I had a detailed discussion with the patient and/or guardian regarding: the historical points, exam findings, and any diagnostic results supporting the discharge/admit diagnosis, lab results, the need for outpatient follow up, for definitive care, a family practitioner. 12/16 19:58 Order name: CBC with Diff [facility] 12/16 19:58 Order name: Comprehensive Metabolic Panel [facility] 12/16 19:59 Order name: CBC with Automated Diff; Complete Time: 21:27 EDMS 12/16 19:59 Order name: Comprehensive Metabolic Panel; Complete Time: 21:27 EDMS Administered Medications: 20:19 Drug: NS 0.9% 500 ml Route: IV; Rate: bolus; Site: left antecubital; vg1 21:11 Follow up: IV Status: Completed infusion; IV Intake: 500ml 1 20:19 Drug: SOLU-Medrol (methylPrednisoLONE) 125 mg Route: IVP; Site: left antecubital; vg1 21:00 Follow up: Response: No adverse reaction vg1 20:20 Drug: Pepcid (famotidine) 40 mg Route: IVP; Site: left antecubital; vg1 21:00 Follow up: Response: No adverse reaction vg1 20:23 Drug: Benadryl (diphenhydrAMINE) 25 mg Route: IVP; Site: left antecubital; vg1 21:00 Follow up: Response: No adverse reaction vg1 20:30 Drug: predniSONE 60 mg Route: PO; vg1 21:00 Follow up: Response: No adverse reaction vg1 Disposition: 12/16/20 20:49 Discharged to Home. Impression: Bee allergy status, Insect allergy status. - Condition is Stable. - Discharge Instructions: Bee, Wasp, or Hornet Sting, Adult, Allergies, [id number]. - Prescriptions for Benadryl 25 mg Oral Capsule - take 1 capsule by ORAL route every 6 hours As needed; 30 tablet. Pepcid 20 mg Oral Tablet - take 1 tablet by ORAL route every 12 hours for 10 days; 20 tablet. Prednisone 20 mg Oral Tablet - take 2 tablet by ORAL route once daily for 5 days; 10 tablet. EpiPen 0.3 mg Injection auto- injector - inject 1 pen by INTRAMUSCULAR route one time Inject into the outer portion of the thigh, through clothing if necessary. Indicated in the emergency treatment of allergic reactions; 1 Cartridge. - Medication Reconciliation Form, Thank You Letter, Antibiotic Education, Prescription Opioid Use form. - Follow up: Yusra Sales MD; When: 2 - 3 days; Reason: Recheck today's complaints, Continuance of care, Re-evaluation by your physician. - Problem is new. - Symptoms have improved. Signatures: Dispatcher [employer] EDMS Axel Bess MD MD cha Ballard, Brenda, RN RN Martha Mcintosh RN RN vg1 Corrections: (The following items were deleted from the chart) 21:33 20:49 12/16/2020 20:49 Discharged to Home. Impression: Bee allergy status; Insect vg1 allergy status. Condition is Stable. Forms are Medication Reconciliation Form, Thank You Letter, Antibiotic Education, Prescription Opioid Use. Follow up: Yusra Sales; When: 2 - 3 days; Reason: Recheck today's complaints, Continuance of care, Re-evaluation by your physician. Problem is new. Symptoms have improved. jalen
[2020-12-16 20:57] LABS: Albumin 3.6 g/dL (3.4-5.0); Bilirubin Total 0.3 mg/dL (0.2-1.0); Potassium 3.9 mmol/L (3.5-5.1); Protein, Total 8.1 g/dL (6.4-8.2)
[2020-12-16 21:52] VITALS: TEMP 98.3
[2020-12-16 21:54] VITALS: BP 169/90; O2SAT 100
== END 2020-12-16 21:33 | disposition home or self-care (01) ==
LOC: ER 19:35
DX: R22.9 Localized swelling, mass and lump, unspecified (principal); Z91.038 Other insect allergy status; Z88.5 Allergy status to narcotic agent
CPT/HCPCS: 96361; 85025; 36415; 80053; 96375; 96374; 99284; J1200; J7040; J2930; J7512